=== PATIENT | female | born 2000 | race Caucasian/White ===

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

== ENCOUNTER → 2020-01-21 11:17 | Outpatient (CLI) | payer OTHER, SELFPAY ==
[2020-01-21 13:07] LABS: Free Thyroxine Index 2.6 ug/dL (5.93-13.13); T4 (Thyroxine) 8.7 ug/dl (5.53-11.0); Triiodothryronine (T3) Uptake 30 % (23.5-40.5)
[2020-01-21 13:20] LABS: Thyroid Stimulating Hormone 1.69 uIU/mL (0.465-4.68)
[2020-01-22 11:03] LABS: Thyroid Peroxidase Antibodies 13 IU/mL (0-26)
== END ==
PROVIDERS: Visit Provider Nurse Practitioner Obstetrics & Gynecology
DX: R53.82 Chronic fatigue, unspecified (principal); L65.9 Nonscarring hair loss, unspecified
CPT/HCPCS: 36415; 84436; 84443; 84479; 86376

== ENCOUNTER 2022-07-14 16:40 | Emergency (ER) | payer OTHER, SELFPAY ==
[2022-07-14 16:42] VITALS: BP 140/105; PULSE 102; RESP 17; TEMP 37.5; O2SAT 97; BMI 32.1
[2022-07-14 16:55] VITALS: BMI 32.1
[2022-07-14 17:02] LABS: Urine Pregnancy, HCG Qual. Negative (Negative)
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
--- NOTE | 2022-07-14 17:17 | PC.NURSE ---
DR. LYONS AT BEDSIDE TO EVALUATE PT
[2022-07-14 17:45] VITALS: BP 119/81; PULSE 91; RESP 17; TEMP 37.2; O2SAT 98
== END 2022-07-14 17:45 | disposition home or self-care (01) ==
PROVIDERS: Emergency Provider Student in an Organized Health Care Education/Training Program
DX: R07.81 Pleurodynia (principal); R10.30 Lower abdominal pain, unspecified; F17.210 Nicotine dependence, cigarettes, uncomplicated; V89.2XXA Person injured in unspecified motor-vehicle accident, traffic, initial encounter
CPT/HCPCS: 81025; 99283; 99284

== ENCOUNTER 2025-01-04 15:18 | Outpatient (CLI) | payer BC, SELFPAY ==
--- OUTSIDE RECORDS SUMMARY | 2025-01-04 15:20 | XMS_ITS | Clinical Summary ---
Author Organization Healthcare Address [address] [place] [address] Care Team Providers Care Fish Trapper Name Role Phone Vianney Syed Primary Care Provider Allergies No known active allergies Social History Tobacco Use Types Packs/Day Years Used Date Smoking Tobacco: Never Smokeless Tobacco: Current Tobacco Cessation:Ready to Q uit: No; Counseling Given: Not Answered Alcohol Use Standard Drinks/Week Comments No 0 (1 standard drink = 0.6 oz pure alcohol) Alcoholic Drinks/day: Denies alcohol consumption Comments Unknown Sex and Gender Information Value Date Recorded Sex Assigned at Not on file Legal Sex Female 6:31 PM EDT Gender Identity Not on file Sexual Orientation Not on file Last Filed Vital Signs Vital Sign Reading Time Taken Comments Blood Pressure 136/91 07/12/2022 2:31 PM EST Pulse 123 07/12/2022 2:31 PM EST Pt verbally reports feeling anxious. Temperature 37.5 C (99.5 F) 07/12/2022 2:31 PM EST Respiratory Rate 18 07/12/2022 2:31 PM EST Oxygen Saturation 97% 07/12/2022 2:3 1 PM EST Inhaled Oxygen Concentration - - Weight 93 kg (205 lb) 07/12/2022 2:31 PM EST Height 169.5 cm (5' 6.73 ) 12/29/2016 1 2:56 PM EDT Body Mass Index - - Plan of Treatment Not on file Insurance [employer] Care Teams Fish Trapper Relationship Specialty Start Date End Date Vianney Syed PA [address] [place] [address] [facility] - General 10/05/20
--- NOTE | 2025-01-04 15:21 | US_ITS ---
PROCEDURE INFORMATION: Exam: US Right Breast, Complete Exam date and time: 01/04/2025 3:12 PM Age: 24 years old Clinical indication: Breast pain; Right TECHNIQUE: Imaging protocol: Complete ultrasound of all four quadrants of the right breast and the retroareolar regions, including ultrasound of the axilla when performed. COMPARISON: No relevant prior studies available. FINDINGS: ULTRASOUND: Breast ultrasound findings: Sonographic images of the right breast including the retroareolar region, all 4 quadrants and the axilla do not demonstrate any solid or cystic masses. No architectural distortion or acoustical shadowing. No skin thickening or axillary adenopathy. IMPRESSION: No sonographic evidence of malignancy. ASSESSMENT: BI-RADS Category 1: Negative.
== END 2025-01-04 23:59 | disposition home or self-care (01) ==
LOC: RAD 15:18
PROVIDERS: PCP Nurse Practitioner; Visit Provider Nurse Practitioner
DX: N64.4 Mastodynia (principal)
CPT/HCPCS: 76641